=== PATIENT | male | born 1955 | race Asian ===

== ENCOUNTER 2017-04-24 09:37 | Emergency (ER) | payer BC ==
[~2017-04-24] VITALS: Ht 180.3 cm; Wt 84.8 kg
[2017-04-24 09:37] VITALS: BP_SYST 131
--- NOTE | 2017-04-24 09:37 | NUR ---
BROUGHT BACK TO BED #4 AND TRIAGED. WILL ASSUME CARE.
--- NOTE | 2017-04-24 09:45 | NUR ---
PT STATES WHILE PLAYING TENNIS, FELL ONTO RIGHT HAND AND ACCIDENTALLY HITTING SELF IN LEFT WITH TENNIS RACKET. SMALL LACERATION TO RIGHT UPPER LIP, LEFT KNEE. DENIES ANY K.O. FRIENDS AT BEDSIDE.
--- NOTE | 2017-04-24 09:51 | NUR ---
DR SELBY AT BEDSIDE FOR EVALUATION
[2017-04-24] MEDS ORDERED: ACETAMINOPHEN 325 MG TABLET PO ONE (10:30)
--- NOTE | 2017-04-24 10:30 | NUR ---
SHAUNA WRAP APPLIED TO RIGHT HAND, PT TOLERATED IT WELL,.
--- NOTE | 2017-04-24 10:37 | NUR ---
DR SELBY AT BEDSIDE FOR RE-EVALUATION
--- NOTE | 2017-04-24 10:40 | NUR ---
Patient given written and verbal discharge instructions and verbalizes understanding. ER MD discussed with patient the results and treatment provided. Patient in stable condition. ID arm band removed. Rx of MOTRIN given. Patient educated on pain management and to follow up with PMD. Pain Scale 0/10. Opportunity for questions provided and answered.
[2017-04-24 10:41] VITALS: BP_SYST 127
== END 2017-04-24 10:41 | disposition home or self-care (01) ==
LOC: SED 09:37
DX: S63.91XA Sprain of unspecified part of right wrist and hand, initial encounter (principal); S00.83XA Contusion of other part of head, initial encounter; W01.0XXA Fall on same level from slipping, tripping and stumbling without subsequent striking against object, initial encounter; Y93.73 Activity, racquet and hand sports; Y92.89 Other specified places as the place of occurrence of the external cause; Y99.8 Other external cause status
CPT/HCPCS: 99284